=== PATIENT | male | born 1955 | race African-American/Black ===

== ENCOUNTER 2017-07-22 16:32 | Emergency (ER) | payer OTHER ==
[2017-07-22 16:36] VITALS: BP 125/72; PULSE 88; TEMP 98; BMI 29.0
[2017-07-22] MEDS ORDERED: IBUPROFEN 600 MG TABLET (FP) PO ONE ×2 (16:56→17:00)
--- NOTE | 2017-07-22 17:08 | PDOC ---
History of Present Illness - General Chief Complaint: Injury Stated Complaint: RT LEG INJURY Time Seen by Provider: 07/22/17 16:37 History Source: Patient Exam Limitations: No Limitations - History of Present Illness Initial Comments: 07/22/17 17:03 61 yr male with c/o right leg injury after he states he stepped on uneven road and twisted ankle fell on the knee. Occurred: reports: this morning (630am) Pain Location: reports: lower extremity (right knee, right ankle/foot) Past History - Past Medical History Allergies/Adverse Reactions: Allergies Allergy/AdvReac Type Severity Reaction Status Date / Time No Known Allergies Allergy Verified 07/22/17 16:34 Home Medications: Ambulatory Orders Unobtainable [Unobtainable] 07/22/17 Diabetes: Yes - Suicide/Smoking/Psychosocial Hx Smoking History: Never smoked Trauma Specific PMHX - Complaint Specific PMHX Arthritis: No Back Injury: No Neck Injury: No Hx Sacro Iliac Joint Dysfunction: No Review of Systems - Review of Systems Able to Perform ROS?: Yes Is the patient limited Irish proficient: No Constitutional: No: Symptoms Reported HEENTM: No: Symptoms Reported Respiratory: No: Symptoms reported Cardiac (ROS): No: Symptoms Reported ABD/GI: No: Symptoms Reported : No: Symptoms Reported Musculoskeletal: Yes: Symptoms Reported, See HPI *Physical Exam - Vital Signs Last Vital Signs Temp Pulse Resp BP Pulse Ox 98 F 88 18 125/72 95 07/22/17 16:35 07/22/17 16:35 07/22/17 16:35 07/22/17 16:35 07/22/17 16:35 - Physical Exam General Appearance: Yes: Nourished, Appropriately Dressed HEENT: positive: EOMI, FERNIE Neck: positive: Supple. negative: Tender Respiratory/Chest: positive: Lungs Clear, Normal Breath Sounds Cardiovascular: positive: Regular Rhythm, Regular Rate Musculoskeletal: positive: Normal Inspection Extremity: positive: Normal Capillary Refill, Normal Inspection, Tender (medial aspect of knee, FROM no calf pain or swelling, swelling noted to the right lateral malleoulus nv intact ) Integumentary: positive: Normal Color, Dry, Warm Neurologic: positive: Fully Oriented, Alert, Normal Mood/Affect, Normal Response , Motor Strength 5/5 ED Treatment Course - RADIOLOGY Radiology Studies Ordered: Category Date Time Status ANKLE & FOOT-RIGHT* [RAD] Stat Radiology 07/22/17 16:56 Ordered ANKLE-RIGHT [RAD] Stat Radiology 07/22/17 16:56 Ordered Medical Decision Making - Medical Decision Making 07/22/17 17:10 cc: pain to the knee and ankle after twisting and fell on knee nv intact no pain meds taken LOAF COUNTER will xray knee and ankle to r/o fracture 07/22/17 17:47 ankle xray is negative for acute fracture nv intact will place air cast splint 07/22/17 17:55 pt is ambulatory. 07/24/17 11:32 *DC/Admit/Observation/Transfer Diagnosis at time of Disposition: Ankle sprain Qualifiers: Encounter type: initial encounter Involved ligament of ankle: unspecified ligament Laterality: right Qualified Code(s): S93.401A - Sprain of unspecified ligament of right ankle, initial encounter Right knee sprain Qualifiers: Encounter type: initial encounter Involved ligament of knee: other ligament Qualified Code(s): S83.8X1A - Sprain of other specified parts of right knee, initial encounter - Discharge Dispostion Disposition: HOME Condition at time of disposition: Improved - Referrals Referrals: Roman Rojas [Primary Care Provider] - - Patient Instructions Additional Instructions: follow with the orthopedist or for follow up in 5-7 days elevate and apply ice every 2hrs for 20 minutes for 2 days use the air cast splint while awake remove to sleep and bathe take ibuprofen 800mg every 6hrs for pain as needed you may feel sore a few days however the pain should get better with elevation ice and rest - Post Discharge Activity Forms/Work/School Notes: Back to Work
== END 2017-07-22 18:29 | disposition home or self-care (01) ==
LOC: JERFT 16:32
PROC: 2W3LX1Z Immobilization of Right Lower Extremity using Splint (ICD-10-PCS; principal; 2017-07-22)
DX: S93.401A Sprain of unspecified ligament of right ankle, initial encounter (principal); S83.8X1A Sprain of other specified parts of right knee, initial encounter; W18.39XA Other fall on same level, initial encounter; Y93.01 Activity, walking, marching and hiking; Y92.414 Local residential or business street as the place of occurrence of the external cause
CPT/HCPCS: 73562-TC-RT; 73610-TC-RT; 73630-TC-RT; 99281-25

== ENCOUNTER 2018-05-17 14:04 | Emergency (ER) | payer OTHER ==
[2018-05-17 14:16] VITALS: PULSE 75; BMI 59.8
--- NOTE | 2018-05-17 14:27 | PDOC ---
History of Present Illness - General Chief Complaint: Weakness Stated Complaint: WEAKNESS/VISION PROBLEM Time Seen by Provider: 05/17/18 14:27 History Source: Patient Exam Limitations: No Limitations - History of Present Illness Initial Comments: 05/17/18 15:17 62m with pmh of htn and diabetes on metformin presents to the Ed for weakness, fatigue for the past 2 months. Hasn't scene a doctor for the past 4 months since his old PCP retired and checked his fingerstick 3 weeks ago, was arounf 360. Still uses metformin from old prescription. Also complains of chest tightness, kidney discomfort and blurry vision for the past month. Past History - Past Medical History Allergies/Adverse Reactions: Allergies Allergy/AdvReac Type Severity Reaction Status Date / Time No Known Allergies Allergy Verified 05/17/18 14:11 Home Medications: Ambulatory Orders Unobtainable 07/22/17 COPD: No Diabetes: Yes - Suicide/Smoking/Psychosocial Hx Smoking History: Never smoked Information on smoking cessation initiated: No Hx Alcohol Use: No Drug/Substance Use Hx: No Substance Use Type: None Review of Systems - Review of Systems Able to Perform ROS?: Yes Is the patient limited Austrian proficient: No Constitutional: Yes: See HPI HEENTM: Yes: See HPI Respiratory: No: Symptoms reported Cardiac (ROS): Yes: See HPI ABD/GI: No: Symptoms Reported : Yes: See HPI Musculoskeletal: No: Symptoms Reported Integumentary: No: Erythema Neurological: No: Symptoms reported Endocrine: Yes: Increased Thirst, Increased Urine All Other Systems: Reviewed and Negative *Physical Exam - Vital Signs Last Vital Signs Temp Pulse Resp BP Pulse Ox 97.8 F 75 16 125/81 100 05/17/18 14:12 05/17/18 14:12 05/17/18 14:12 05/17/18 14:12 05/17/18 14:12 - Physical Exam General Appearance: Yes: Nourished, Appropriately Dressed. No: Apparent Distress HEENT: positive: EOMI, FERNIE, Normal ENT Inspection, Other (left eye:20/25, right eye: 20/40 with glasses. Unknown baseline. ) Respiratory/Chest: positive: Lungs Clear, Normal Breath Sounds. negative: Chest Tender ED Treatment Course - LABORATORY CBC & Chemistry Diagram: 05/17/18 15:10 08/25/18 15:10 Medical Decision Making - Medical Decision Making 05/17/18 15:23 Will order basic labs, ekg, cxr, trops and fingerstick 05/17/18 17:03 blood sugar 212 and negative acetone. Will discharge patient with referral to clinic. *DC/Admit/Observation/Transfer Diagnosis at time of Disposition: Diabetes - Discharge Dispostion Disposition: HOME Decision to Admit order: No - Referrals Referrals: Chema West MD [Staff Physician] - - Patient Instructions Printed Discharge Instructions: DI for Hyperglycemia -- Adult Additional Instructions: Follow up with Dr West at the clinic within the next 2 days. Come back to the ER for any new, worsening or concerning symptom. - Post Discharge Activity
--- NOTE | 2018-05-17 14:42 | PDOC ---
Attending Attestation - HPI HPI: 05/17/18 15:35 The patient is a 62 year old male with past medical history of hypertension and diabetes (on Metformin) who presents to the ED for weakness for the past 2 months. He reports his PCP retired 6 months ago and since then has not been very compliant with his diabetes follow up. He states he did not take his Metformin the past two days because he was fasting for gnosticism reasons. Last glucose check was three weeks ago which was in the 300s. In addition he complains of chest tightness but denies palpitations or shortness of breath. He denies fever, chills, nausea, vomiting, diarrhea, dizziness, syncope or urinary complaints. - Physicial Exam PE: 05/17/18 15:35 GENERAL: Awake, alert, and fully oriented, in no acute distress HEAD: No signs of trauma EYES: PERRLA, EOMI, sclera anicteric, conjunctiva clear ENT: Auricles normal inspection, hearing grossly normal, nares patent, oropharynx clear without exudates. Moist mucosa NECK: Normal ROM, supple, no lymphadenopathy, JVD, or masses LUNGS: Breath sounds equal, clear to auscultation bilaterally. No wheezes, and no crackles HEART: Regular rate and rhythm, normal S1 and S2, no murmurs, rubs or gallops ABDOMEN: Soft, nontender, normoactive bowel sounds. No guarding, no rebound. No masses EXTREMITIES: Normal range of motion, no edema. No clubbing or cyanosis. No cords, erythema, or tenderness NEUROLOGICAL: Cranial nerves II through XII grossly intact. Normal speech, normal gait SKIN: Warm, Dry, normal turgor, no rashes - Medical Decision Making 05/17/18 15:35 Documentation prepared by Aleksandra Conner, acting as medical dermatologist for Leslie Montenegro MD. <Aleksandra Conner - Last Filed: 05/17/18 15:35> - Medical Decision Making 05/20/18 10:17 Pt presents to the ED complaining of generalized malaise. Has not been checking his sugars or been compliant with his medications at home. Labs checked to evaluate for DKA or severe hyperglycemia and are negative. PAteint feels improved after IV hydration. Will discharge home. 05/20/18 10:27 <Leslie Montenegro - Last Filed: 05/20/18 10:27>
[2018-05-17 15:29] LABS: BASO % 0.3 % (0-2.0); HEMOGLOBIN 14.1 GM/dL (11.7-16.9); LYMPH % 28.4 % (8-40); MCH 28.2 pg (25.7-33.7); MCHC 35.2 g/dl (32.0-35.9); MEAN CELL VOLUME 80.1 fl (80-96); MEAN PLT VOLUME 9.2 fl (7.5-11.1); MONO % 9.2 % (3.8-10.2); NEUT % 59.1 % (42.8-82.8); PLATELET COUNT 204 K/MM3 (134-434); RDW 15.8 % (11.9-15.9); URINE APPEARANCE CLEAR; URINE BILIRUBIN NEGATIVE (<2.0 mg/dL); URINE COLOR YELLOW; URINE GLUCOSE (UA) 3+ (NEGATIVE); URINE KETONE 1+ (NEGATIVE); URINE LEUK ESTERASE NEGATIVE (NEGATIVE); URINE NITRITE NEGATIVE (NEGATIVE); URINE PROTEIN NEGATIVE (NEGATIVE); URINE UROBILINOGEN NEGATIVE mg/dL (0.2-1.0); WHITE BLOOD COUNT 4.8 K/mm3 (4.0-10.0)
[2018-05-17 15:50] LABS: ALBUMIN 3.8 g/dl (3.4-5.0); ANION GAP 7 MMOL/L (8-16); BILIRUBIN,TOTAL 0.4 mg/dL (0.2-1.0); BLOOD UREA NITROGEN 12 mg/dL (7-18); CALCIUM 8.8 mg/dL (8.5-10.1); CHLORIDE 106 mmol/L (98-107); CO2 28 mmol/L (21-32); CREATININE 0.9 mg/dL (0.7-1.3); GLUCOSE,RANDOM 212 mg/dL (74-106); POTASSIUM 3.8 mmol/L (3.5-5.1); SGOT/AST 20 U/L (15-37); SGPT/ALT 37 U/L (12-78); SODIUM 141 mmol/L (136-145); TOT PROT 6.7 g/dl (6.4-8.2)
[2018-05-17 15:53] LABS: ALK PHOS 78 U/L (45-117)
[2018-05-17] MEDS ORDERED: SODIUM CHLORIDE 1,000 ML IV STA (15:56)
[2018-05-17 17:35] VITALS: BP 121/79; TEMP 97.6
--- NOTE | 2018-05-18 21:59 | EKG ---
Test Reason : Blood Pressure : / mmHG Vent. Rate : 079 BPM Atrial Rate : 079 BPM P-R Int : 164 ms QRS Dur : 088 ms QT Int : 386 ms P-R-T Axes : 068 027 047 degrees QTc Int : 442 ms NORMAL SINUS RHYTHM POSSIBLE LEFT ATRIAL ENLARGEMENT BORDERLINE ECG WHEN COMPARED WITH ECG OF 26-APR-2010 18:51, NO SIGNIFICANT CHANGE WAS FOUND Confirmed by TERESA FLETCHER MD ([id number]) on 05/18/2018 9:59:36 PM Referred By: Confirmed By:TERESA FLETCHER MD
== END 2018-05-17 17:35 | disposition home or self-care (01) ==
LOC: JER 14:04
PROC: 3E0337Z Introduction of Electrolytic and Water Balance Substance into Peripheral Vein, Percutaneous Approach (ICD-10-PCS; principal; 2018-05-17)
DX: E11.65 Type 2 diabetes mellitus with hyperglycemia (principal); Z79.84 Long term (current) use of oral hypoglycemic drugs; I10 Essential (primary) hypertension
CPT/HCPCS: 36415; 71046-TC-FY; 80053; 81003; 82009; 84484; 85025; 87086; 93005; 93010; 99282-25; J7030

== ENCOUNTER 2022-01-22 09:10 | Day surgery (SDC) | payer OTHER ==
[2022-01-18 12:41] VITALS: BMI 27.4
[2022-01-22 10:40] VITALS: PULSE 77
[2022-01-22 11:21] VITALS: TEMP 98
[2022-01-22 11:34] VITALS: BP 115/75
== END 2022-01-22 11:45 | disposition home or self-care (01) ==
LOC: FASU-ENDO 09:10
PROVIDERS: ATTEND Internal Medicine Gastroenterology
PROC: 0DJD8ZZ Inspection of Lower Intestinal Tract, Via Natural or Artificial Opening Endoscopic (ICD-10-PCS; principal; 2022-01-22 10:58)
DX: Z12.11 Encounter for screening for malignant neoplasm of colon (principal)
CPT/HCPCS: 82962

== ENCOUNTER 2024-10-19 16:41 | Emergency (ER) | payer OTHER ==
[2024-10-19 17:02] VITALS: BP 126/79; PULSE 85; RESP 17; TEMP 97.7; BMI 26.6
[2024-10-19] MEDS: ACETAMINOPHEN 500 MG TABLET (FP) PO ONE (17:09)
[2024-10-19] MEDS ORDERED: ACETAMINOPHEN 500 MG TABLET (FP) ONE (18:05)
== END 2024-10-19 19:03 | disposition home or self-care (01) ==
LOC: JERFT 16:41
DX: M25.512 Pain in left shoulder (principal); M54.6 Pain in thoracic spine
CPT/HCPCS: 73030-TC-LT-FY; 99283-25